=== PATIENT | female | born 1990 | race Two or more races ===

== ENCOUNTER 2017-07-03 16:24 | Emergency (ER) | payer OTHER ==
[~2017-07-03] VITALS: Ht 152.4 cm; Wt 49.0 kg
[2017-07-03 16:32] VITALS: BP 98/62
[2017-07-03] MEDS ORDERED: IBUPROFEN600 MG ORAL (17:35)
[2017-07-03] MEDS ORDERED: TRAMADOL HCL50 MG ORAL (17:35)
[2017-07-03 17:43] VITALS: BP 101/62
--- NOTE | 2017-07-03 20:44 | Emergency Room Report ---
History of Present Illness General Chief Complaint: Lower Back Pain or Injury Source: Patient Present Illness HPI The patient is a 26-year-old female presenting for lower back pain. She states that she injured her lower back 3 days prior when she was hanging on a bar, slipped off of the bar, and hyperextended her back. She denies falling. She states pain is now a 6/10 dull ache to the mid lower back and does not radiate. She denies any numbness or tingling. She denies any other symptoms including urinary incontinence, abd pain, weakness Allergies: Coded Allergies: No Known Allergies (Unverified , 07/03/17) Patient History Past Medical History: see triage record Pertinent Family History: none Reviewed Nursing Documentation: PMH: Agreed, PSxH: Agreed Nursing Documentation-PMH Past Medical History: No Stated History Review of Systems All Other Systems: negative except mentioned in HPI Physical Exam Vital Signs Date Time Temp Pulse Resp B/P (MAP) Pulse Ox O2 Delivery O2 Flow Rate FiO2 07/03/17 16:32 97.9 59 20 98/62 99 Room Air Sp02 EP Interpretation: reviewed, normal General Appearance: no apparent distress, alert, GCS 15, non-toxic Head: normocephalic, atraumatic Eyes: bilateral eye normal inspection, bilateral eye PERRL ENT: hearing grossly normal, normal pharynx, no angioedema, normal voice Neck: full range of motion, supple/symm/no masses Musculoskeletal: normal inspection, normal range of motion, tender - TTP over midline L spine and bilat paraspinous muscles Neurologic: alert, oriented x3, responsive, motor strength/tone normal, sensory intact, speech normal Psychiatric: judgement/insight normal, memory normal, mood/affect normal, no suicidal/homicidal ideation Skin: normal color, no rash, warm/dry, well hydrated Medical Decision Making PA Attestation Dr. Ram is my supervising physician. Patient management was discussed with my supervising physician Diagnostic Impression: Primary Impression: Back pain Qualified Codes: M54.5 - Low back pain ER Course The patient is a 26-year-old female presenting for lower back pain. Ddx considered include but not limited to lumbar strain, disc herniation, degenerative disease, epidural abscess, cauda equina syndrome, muscle spasm, among others PE: NAD There is tender to palpation along the lumbar mid spine as well as paraspinal muscles. No step-offs. Normal gait. Full active range of motion. Sensation is intact X-ray of the L. spine is unremarkable. She will followup with her primary doctor. She may need MRI if symptoms continue or worsen. ER precautions are given Other X-Ray Diagnostic Results Other X-Ray Diagnostic Results : X-Ray ordered: L spine # of Views/Limited Vs Complete: 3 View Indication: Pain EP Interpretation: Yes Interpretation: no dislocation, no soft tissue swelling, no fractures Impression: No acute disease Electronically Signed by: MED Dalton Scribaditya Text I have reviewed the xray with my supervising physician and interpretation is that there are no fractures, dislocations or soft tissue swelling. Last Vital Signs Date Time Temp Pulse Resp B/P (MAP) Pulse Ox O2 Delivery O2 Flow Rate FiO2 07/03/17 17:43 97.9 60 20 101/62 100 Room Air Status: improved Disposition: HOME, SELF-CARE Condition: Improved Scripts Tramadol Hcl* (ULTRAM*) 50 Mg Tablet 50 MG ORAL Q6H Y for For Pain, #15 TAB 0 Refills Prov: BRIGIDO JOSEAPaula 07/03/17 Ibuprofen* (MOTRIN*) 600 Mg Tablet 600 MG ORAL Q8H Y for For Pain, #30 TAB 0 Refills Prov: BRIGIDO JOSE.A. 07/03/17 Patient Instructions: Back Pain, Adult Additional Instructions: I discussed my findings with the patient. All questions and concerns have been answered. Treatment and medication compliance have been addressed. I advised the patient that they need to follow up with primary doctor in 3-5 days. Return to ED if pain remains or worsens, numbness or tingling occurs, new rash is noticed, fever is noticed, or if needed for any reason. Patient verbalized understanding of discharge instructions. If pain continues or worsens, you may need MRI. BRIGIDO JOSE Jul 03, 2017 20:44
--- NOTE | 2017-07-04 10:59 | Diagnostic Imaging Report ---
Indication: Back pain Comparison: None Findings: 3 views of the lumbar spine were obtained. No acute fracture or malalignment is identified. Vertebral body heights and disk spaces are well maintained. Posterior elements are unremarkable. Impression: No acute findings.
== END 2017-07-03 17:43 | disposition home or self-care (01) ==
LOC: EMR 17:10
DX: M54.5 Low back pain (principal)
CPT/HCPCS: 72020; 99284